=== PATIENT | male | born 1940 | race Caucasian/White ===

== ENCOUNTER 2020-07-23 22:45 | Inpatient (IN) | payer MEDICARE, SELFPAY ==
--- NOTE | 2020-07-23 | XRR_ITS ---
PROCEDURE INFORMATION: Exam: XR Pelvis Exam date and time: 07/23/2020 11:43 PM Age: 79 years old Clinical indication: Injury or trauma; Blunt trauma (contusions or hematomas); Groin; Patient HX: Fall. External rotation of right leg. C/O pain. ; Additional info: Fall, groin pain, rotation TECHNIQUE: Imaging protocol: XR pelvis. Views: 1 or 2 view. COMPARISON: CR XR hip RT 2-3V wo/w pel* [id number] 07/23/2020 11:16 PM FINDINGS: Bones/joints: There is intertrochanteric fracture of the proximal right femur with varus angulation. Bones are moderately osteopenic. Soft tissues: Unremarkable. Vasculature: Aortoiliac stent graft is partly visualized on this examination. XR/XR pelvis 1-2V* [id number] IMPRESSION: Intertrochanteric right femoral fracture.
[2020-07-23 22:52] VITALS: BP 117/79; PULSE 74; RESP 16; O2SAT 97; BMI 23.6
[2020-07-23 22:55] VITALS: PULSE 70; RESP 16; O2SAT 100
--- NOTE | 2020-07-23 23:05 | XRR_ITS ---
PROCEDURE INFORMATION: Exam: XR Right Hip Exam date and time: 07/23/2020 11:07 PM Age: 79 years old Clinical indication: Injury or trauma; Blunt trauma (contusions or hematomas); Right; Groin; Patient HX: Fall. Leg in external rotation. Put in traction via EMS upon arrival. ; Additional info: Fall, groin pain, rotation TECHNIQUE: Imaging protocol: XR Right hip. Views: 1 view hip with pelvis when performed. COMPARISON: No relevant prior studies available. FINDINGS: Bones/joints: There is intertrochanteric fracture of the proximal right femur with varus angulation. Soft tissues: Unremarkable. Vasculature: Atherosclerotic calcifications are present in regional vessels. XR/XR hip RT 2-3V wo/w pel* [id number] IMPRESSION: Intertrochanteric fracture right femur. COMMENTS: Radiograph the pelvis is reported separately.
--- NOTE | 2020-07-23 23:06 | ED_ITS ---
HPI - Fall General: Chief Complaint: Fall Stated Complaint: FALL Time Seen by Provider: 07/23/20 23:02 History of Present Illness: HPI Narrative: Patient arrives via ambulance with right groin pain after sitting in a chair that broke and he fell to the ground a nd his groin hip area is hurt since then. The medics said they found him outside with blanket smoke a cigarette after family drug him from the chair to outside to smoke. Patient said he is unable to bear weight. Does have strong cardiac history denies any other problems denies loss of conscious neck pain or other related problems. Patient did take a pain pill after fall MD complaint: fall Onset (ago): hour(s) (2129) Fall from: chair Fall witnessed: yes, by family Place fall occurred: home Loss of consciousness: None Prolonged down time: no Symptoms prior to fall: none Context: other (Chair broke) Location of injury: pelvis Severity: moderate Severity scale (1-10): 4 Associated symptoms-after fall: Denies abdominal pain, chest pain or headache(s) Review of Systems Const: Denies: fever(s), chills or body aches Eyes: Denies: change in vision or blurry vision ENMT: Denies: throat pain or nasal congestion Card: Denies: chest pain or dyspnea on exertion Resp: Denies: dyspnea, productive cough or non-productive cough GI: Denies: abdominal pain, nausea or vomiting : Denies: difficulty urinating Musc: Reports: joint pain (Right hip groin area) and muscle cramps; Denies: extremity pain Skin/Breast: Denies: rash Neuro: Denies: headache(s) Psych: Denies: anxiety or depression Zach/Lymph: Denies: easy bruising Physical Exam Const: COMMON NORMALS: no acute distress, average body habitus and patient oriented x3 HENMT: COMMON NORMALS: normocephalic HEAD & SCALP: normal to inspection and normocephalic FACE & SINUS: normal facial exam Eye: COMMON NORMALS: conjunctivae normal GENERAL EYE: appearance normal, both eyes and all related structures CONJUNCTIVA: Yes conjunctivae normal Neck/C-Spine: COMMON NORMALS: no JVD Chest: COMMONS NORMALS: normal inspection of the chest Resp: COMMON NORMALS: normal respiratory effort and clear to auscultation bilaterally AUSCULTATION: clear to auscultation bilaterally Cardio: COMMON NORMALS: no JVD, regular rate and regular rhythm RATE: regular rate RHYTHM: regular rhythm GI: COMMON NORMALS: Normal to inspection, nondistended, normoactive bowel sounds present Extremity: COMMON NORMALS: normal to inspection GENERAL: Yes normal exam except as noted RIGHT LOWER EXTREMITY: Yes hip joint (Tender with range of motion foot outwardly rotated pulses good) Neuro: COMMON NORMALS: patient oriented x3 Course Vital Signs: Vital signs: Vital Signs Pulse Rate 70 07/23/20 22:55 Respiratory Rate 16 07/23/20 22:55 Blood Pressure 117/79 07/23/20 22:52 Pulse Oximetry 100 07/23/20 22:55 Coding Level of Care Code ED Rn Field Case Manager for Cam Goldstein
[2020-07-23 23:25] VITALS: BP 146/72; PULSE 69; RESP 18; O2SAT 95
[2020-07-23 23:30] VITALS: BP 128/68; PULSE 67; RESP 16; O2SAT 99
--- NOTE | 2020-07-23 23:38 | ECG_ITS ---
[facility] Test Date: 2020-07-24 Pat Name: Jed Abarca Department: Room: Gender: Male Running Rigger: : 1940 Requested By: Darío Hicks Order Number: [id number] Reading MD: STACY AMBROSIO Measurements Intervals [place] Rate: 70 P: 137 [place]: 136 QRS: 204 QRSD: 168 T: 78 QT: 449 QTc: 487 Interpretive Statements ELECTRONIC ATRIAL PACEMAKER ELECTRONIC VENTRICULAR PACEMAKER ABNORMAL RHYTHM ECG No previous ECG available for comparison Electronically Signed On 07-24-2020 20:17:48 CDT by STACY AMBROSIO [email or web address]
--- NOTE | 2020-07-23 23:39 | XR_ITS ---
WS: [id number] PORTABLE CHEST HISTORY: Status post fall. COMPARISON: None available. Dual lead LEFT subclavian cardiac pacer/defibrillator. Prior median sternotomy. Moderate pulmonary hyperinflation with emphysema. No pneumonia. No pleural effusion or pneumothorax. Cardiac size: Normal. Mediastinum/Aorta: Moderate atherosclerosis aorta. Diffuse osteopenia. Advanced degenerative changes at the glenohumeral joints and AC joints. XR/XR chest 1V portable [id number] IMPRESSION: 1. Advanced emphysema and moderate atherosclerosis thoracic aorta. 2. No pneumonia.
[2020-07-24] VITALS (28 sets, daily range): BP systolic 69–149; BP diastolic 36–87; PULSE 63–76; RESP 15–18; TEMP 36.5–37.1; O2SAT 93–100
[2020-07-24] MEDS: ondansetron 2 mg/ML SDV 2 mL 4 MG IVP (01:09)
[2020-07-24] MEDS: sodium chloride 0.9% 1,000 ML 75 ML IV ×2 (01:10→18:12)
[2020-07-24] MEDS: morphine 4 mg/mL SDV 1 mL IVP ×2 (01:10→03:05)
[2020-07-24 01:24] LABS: Basophils # 0.1 10^3/uL (0.0-0.1); Basophils % 0.8 %; Eosinophils # 0.1 10^3/uL (0.0-0.8); Eosinophils % 0.8 %; Hematocrit 27.2 % (42.0-52.0); Hemoglobin 7.9 g/dL (11.7-16.6); Lymphocytes # 1.5 10^3/uL (0.8-4.8); Lymphocytes % 20.9 %; Mean Corpuscular Hemoglobin 22.8 pg (28.0-34.0); Mean Corpuscular Volume 78.6 fL (80-94); Mean Platelet Volume 10.7 fL (7.4-10.4); Monocytes # 0.5 10^3/uL (0.2-0.9); Neutrophils # 5.01 10^3/uL (1.8-7.7); Neutrophils % 70.1 %; Nucleated Red Blood Cells % 0 %; Platelet Count 155 10^3/cmm (130-400); Red Blood Count 3.46 10^6/uL (4.1-5.3); Red Cell Distribution Width 17.9 % (12.1-15.1); White Blood Count 7.2 10^3/uL (4.0-10.0)
--- NOTE | 2020-07-24 01:24 | PC.NURSE ---
pt refused pain medication
[2020-07-24 01:46] LABS: INR 1.12 (0.8-1.2)
[2020-07-24 01:47] LABS: Alanine Aminotransferase 12 U/L (0-41); Albumin Level 3.6 g/dL (3.5-5.2); Alkaline Phosphatase 62 IU/L (40-130); Anion Gap 13.9 (5-19); Aspartate Amino Transferase 12 U/L (0-40); Blood Urea Nitrogen 16 mg/dL (8-23); Calcium 8.7 mg/dL (8.5-10.5); Carbon Dioxide 23 mmol/L (22-29); Chloride 109 mmol/L (98-107); Globulin 2.3 g/dL (1.3-4.6); Glucose 113 mg/dL (65-115); Osmolality Calculated 296 mOsm/kg (285-295); Potassium 3.9 mmol/L (3.5-5.1); Sodium 142 mmol/L (136-145); Total Bilirubin 0.6 mg/dL (0.15-1.2); Total Protein 5.9 g/dL (6.6-8.7)
[2020-07-24] MEDS: HYDROmorphone 1 mg/mL INJ 1 mL 0.5 MG IVP (01:52)
--- NOTE | 2020-07-24 04:51 | P.HP_ITS ---
Providers/Chief Complaint Admitting Physician: Eugene Scales MD Chief Complaint: FALL History of Present Illness Jed Abarca is a 79 year old male who has history of AICD/pacemaker placement reduced ejection fraction heart failure, presented today after sustaining a fall at home. Patient is stating that he is visiting his sister in [place] originally he lives 300 miles away, today he was having dinner with his sister while sitting on a bar chair, he tried to recline when back of the chair broke and he fell on the ground on his right hip. He started experiencing excruciating pain and was not able to get up on his feet. He was brought to the ER for further evaluation, diagnostics revealed right intertrochanteric hip f racture, Dr. Dee was consulted who requested hospital service to admit the patient. Patient is stating that his last Eliquis dose was around 9 PM, he did not experience any seizure-like activities, chest pain or syncopal event, no signs of UTI, hip pelvis x-ray revealed intertrochanteric right-sided fracture hemoglobin 7.9 Review of Systems Const: Denies: fever(s) Eyes: Denies: change in vision ENMT: Denies: throat pain Card: Denies: chest pain Resp: Denies: dyspnea GI: Denies: abdominal pain : Denies: flank pain Musc: Denies: neck pain Skin/Breast: Denies: rash Neuro: Denies: headache(s) Psych: Denies: anxiety Endo: Denies: polyuria Zach/Lymph: Denies: easy bruising All/Imm: Denies: urticaria Medications/Allergies Home Medications Medication Instructions Recorded Confirmed Last Taken Type Colace PRN 07/24/20 Unknown History Vitamin D3 5,000 mg PO DAILY 07/24/20 07/24/20 07/23/20 08:00 History apixaban [Eliquis] mg BID 07/24/20 07/23/20 08:00 History atorvastatin 07/24/20 1 Day Ago History ~07/23/20 1 tablet calcium 500 mg PO DAILY 07/24/20 07/24/20 1 Day Ago History ~07/23/20 digoxin 125 mcg PO AC 07/24/20 07/24/20 1 Day Ago History ~07/23/20 furosemide 20 mg PO DAILY 07/24/20 07/24/20 07/23/20 08:00 History gabapentin 07/24/20 1 Day Ago History ~07/23/20 0800 hydrocodone-acetaminophen 1 tab PO TID PRN 07/24/20 07/24/20 1 Day Ago History ~07/23/20 0800 magnesium 250 mg PO BID 07/24/20 07/24/20 1 Day Ago History ~07/23/20 metoprolol tartrate 25 mg PO BID 07/24/20 07/24/20 07/23/20 08:00 History omeprazole 07/24/20 07/23/20 08:00 History oxycodone 5 mg PO TID PRN 07/24/20 07/24/20 1 Day Ago History ~07/23/20 1900 potassium chloride 20 meq PO DAILY 07/24/20 07/24/20 07/23/20 08:00 History sildenafil 20 mg PO DAILY PRN 07/24/20 07/24/20 Unknown History tamsulosin 0.4 mg PO DAILY 07/24/20 07/24/20 07/23/20 08:00 History vitamin X03-utvvz acid 1,000 mg PO DAILY 07/24/20 07/24/20 1 Day Ago History ~07/23/20 Allergies Allergy/AdvReac Type Severity Reaction Status Date / Time No Known Allergies Allergy Verified 07/23/20 22:56 PFSH Acute PFSH: Medical History (Updated 07/24/20 @ 06:27 by Eugene Scales MD) Afib Chronic anticoagulation Pacemaker ECG pattern Peripheral vascular disease Stents in lower extremities and aorta Surgical History (Updated 07/24/20 @ 06:27 by Eugene Scales MD) History of ankle surgery Presence of biventricular AICD Previous back surgery S/P placement of cardiac pacemaker Family History (Updated 07/24/20 @ 06:27 by Eugene Scales MD) Father Cancer Mother Cancer Social History (Updated 07/24/20 @ 06:28 by Eugene Scales MD) Smoking and tobacco status: current every day smoker cigarettes [ Other cigarette details: Half pack a day ] Alcohol intake: current Alcohol intake frequency: holidays/special occasions only Substance/Drug Use: never Household members: family Housing: House Vitals/I&O/Wt Last Vital Signs Temp 98.8 F 07/24/20 04:20 Pulse 71 07/24/20 04:20 Resp 15 07/24/20 04:20 BP 90/42 07/24/20 04:21 Pulse Ox 93 07/24/20 04:20 Weight last 48 hrs Weight 70.307 kg Physical Exam Narrative: EXAM NARRATIVE: Very pleasant elderly male who appears younger than stated age Clinically looks dehydrated and emaciated S1, S2 variable, no murmur Abdomen soft nontender hyperactive bowel sound No abdominal tenderness No acute respite distress no adventitious rhonchi or crackles EOMI, PERRLA GCS 15 awake alert oriented x3 no neurological deficit Bilateral breath sounds Lower extremity no edema gangrene ulcer, right lower extremity rotated outwards, no vascular compromise Appropriate mood and affect Data : 07/24/20 01:17 07/24/20 01:17 A&P Assessment and plan (1) Closed right hip fracture: Patient sustained a fall at home after falling from the chair No signs of syncope or cardiac event Patient is stating that he has been losing weight significantly in last 3 months however he underwent 2 major surgeries in April and May for ankle and back He is not very mobile at home, he has reduced action fraction heart failure status post AICD/pacemaker I would request records from [facility] His last Eliquis dose was at 9 PM, would recommend surgical intervention after 24 hours, I am concerned about his poor ejection fraction heart failure and poor functional status however considering the fact he underwent ankle and back surg shaunna last 60 days I would hold off on cardiac work-up until we see further information from [facility] Continue his metoprolol to prevent postoperative worsening of A. fib Hold Eliquis Keep him n.p.o. until evaluated by orthopedics Dr. Dee is consulted Status: Acute Additional A&P Information SCDs for DVT prophylaxis N.p.o. advance diet after orthopedic evaluation Morphine for pain A. fib without RVR AICD/pacemaker no acute event, EKG showing paced rhythm, no syncopal event or chest pain Hold digoxin Attestations Medical Necessity Statement*: Anticipating stay in the hospital because more than 2 midnights because of right intertrochanteric hip fracture will need surgical intervention after 24 hours Time Spent in Patient Care: (>than 50% of time spent in counselling and/or direct pt care on unit) . 40mins Coding Level of Care Code Acute Aviation Safety Equipment Technician for Chg Fwd Diagnoses Closed right hip fracture S72.001A
--- NOTE | 2020-07-24 07:12 | PC.NURSE ---
AM NOTE NOTED RIGHT LEG TO BE EXTERNAL ROTATED - FLOWER PP DOPPLED
[2020-07-24] MEDS: dextrose 5%-sod chloride 0.45% 1,000 ML 30 ML IV (09:17)
[2020-07-24] MEDS: sodium chloride 0.9% 500 ML 999 ML IV (10:01)
--- NOTE | 2020-07-24 10:10 | PC.PT ---
PT orders received, will await ortho repair and additional orders prior to initiating PT
[2020-07-24 10:39] LABS: Hematocrit 26.7 % (42.0-52.0); Hemoglobin 7.6 g/dL (11.7-16.6)
[2020-07-24 10:58] LABS: Digoxin 1.4 ng/mL (0.6-1.2)
[2020-07-24] MEDS: morphine 4 mg/mL SDV 1 mL 2 MG IVP ×2 (13:39→23:26)
--- NOTE | 2020-07-24 13:57 | P.PN_ITS ---
Subjective Subjective: Interval history: History and physical reviewed. Patient reports right hip discomfort, controlled currently. I have spoken with his daughter who had some concerns as he lives out of town. We will plan on repairing the hip here. He normally takes anticoagulation in the form of apixaban. This will be held prior to his surgery. Medications: Reviewed: Yes Vitals/I&O/Wt Last Vital Signs Temp 97.7 F 07/24/20 12:00 Pulse 70 07/24/20 12:00 Resp 18 07/24/20 13:39 BP 100/63 07/24/20 12:50 Pulse Ox 96 07/24/20 12:00 07/23/20 07/24/20 07/24/20 22:59 06:59 14:59 Intake Total 0 / 0 480 / 480 Balance 0 / 0 480 / 480 Weight last 48 hrs Weight 70.307 kg Physical Exam Narrative: EXAM NARRATIVE: General exam no apparent distress Cardiovascular regular rate and rhythm, with distant heart sounds Lungs diminished breath sounds but clear Abdomen is soft positive bowel sounds was deferred Extremities no cyanosis clubbing or edema, cap refill brisk. Right leg externally rotated and shortened. Neuro: No obvious focal deficits Urinary Catheter Management^: [place]: Cath Placed During This Visit: yes Urinary Catheter Date of Insertion: 07/24/20 Urinary Catheter Time of Insertion: 10:18 Data : 07/24/20 10:04 07/24/20 01:17 A&P Assessment and plan (1) Closed right hip fracture: Status: Acute (2) Anemia: Status: Acute (3) Afib: Status: Acute Additional A&P Information History of CHF, with history of biventricular AICD Peripheral vascular disease with history of subclavian stenosis for which he will be getting surgical evaluation soon. Note that his blood pressures vary greatly side to side. GERD BPH Full code SCDs for DVT prophylaxis. Anticoagulation contraindicated secondary to severe anemia. Attestations Medical Necessity Statement*: Needs continued hospitalization for evaluation and treatment of hip fracture as well as anemia. Coding Level of Care Code Acute Unit Secretary for Chg Fwd Diagnoses Closed right hip fracture S72.001A Anemia D64.9 Afib I48.91
--- NOTE | 2020-07-24 14:18 | PM.CONSULT ---
Providers/Reason For Consult Consulting Physican/Specialty*: Carlos Dee MD; orthopedic Reason for Consult*: Right intratrochanteric hip fracture Attending Physician: Venu Sosa MD History of Present Illness History of Present Illness Jed Abarca is a 79 year old male who was visiting his daughter here from [place]. He apparently was sitting on a barstool. He leaned back with the back of the chair breaking. He fell to the ground landing on his right hip with immediate pain and inability to bear weight. He was brought to our emergency room where radiographs revealed a right intratrochanteric hip fracture. I have been consulted for surgical management of a fracture. The patient has a medical history consistent with atrial fibrillation. He has a history of coronary artery disease and was scheduled for stent placement this next Thursday in [place]. Meds/Allergies Home Medications and Allergies Home Medications Medication Instructions Recorded Confirmed Last Taken Type Colace PRN 07/24/20 Unknown History Vitamin D3 5,000 mg PO DAILY 07/24/20 07/24/20 07/23/20 08:00 History apixaban [Eliquis] mg BID 07/24/20 07/23/20 08:00 History atorvastatin 07/24/20 1 Day Ago History ~07/23/20 1 tablet calcium 500 mg PO DAILY 07/24/20 07/24/20 1 Day Ago History ~07/23/20 digoxin 125 mcg PO AC 07/24/20 07/24/20 1 Day Ago History ~07/23/20 furosemide 20 mg PO DAILY 07/24/20 07/24/20 07/23/20 08:00 History gabapentin 07/24/20 1 Day Ago History ~07/23/20 0800 hydrocodone-acetaminophen 1 tab PO TID PRN 07/24/20 07/24/20 1 Day Ago History ~07/23/20 0800 magnesium 250 mg PO BID 07/24/20 07/24/20 1 Day Ago History ~07/23/20 metoprolol tartrate 25 mg PO BID 07/24/20 07/24/20 07/23/20 08:00 History omeprazole 07/24/20 07/23/20 08:00 History oxycodone 5 mg PO TID PRN 07/24/20 07/24/20 1 Day Ago History ~07/23/20 1900 potassium chloride 20 meq PO DAILY 07/24/20 07/24/20 07/23/20 08:00 History sildenafil 20 mg PO DAILY PRN 07/24/20 07/24/20 Unknown History tamsulosin 0.4 mg PO DAILY 07/24/20 07/24/20 07/23/20 08:00 History vitamin U13-huiix acid 1,000 mg PO DAILY 07/24/20 07/24/20 1 Day Ago History ~07/23/20 Allergies Allergy/AdvReac Type Severity Reaction Status Date / Time No Known Allergies Allergy Verified 07/23/20 22:56 Current Medications Current Medications Generic Name Dose Route Start Last Admin Trade Name Freq PRN Reason Stop Dose Admin Sodium Chloride 1,000 mls @ 75 mls/hr 07/23/20 23:45 07/24/20 01:10 Sodium Chloride 0.9% IV 75 mls/hr .[id number] CHAVEZ Administration Dextrose/Sodium Chloride 1,000 mls @ 30 mls/hr 07/24/20 06:30 07/24/20 09:17 Dextrose 5%-Sod Chloride 0.45% IV 30 mls/hr .Q24H CHAVEZ Administration Morphine Sulfate 2 mg 07/24/20 06:17 07/24/20 13:39 Morphine 4 Mg/Ml Sdv 1 Ml IVP 2 mg Q4H PRN Administration SEVERE PAIN Senna/Docusate Sodium 1 tab 07/24/20 09:00 07/24/20 07:28 Sennosides-Docusate Tablet PO Not Given DAILY CHAVEZ PFSH Acute PFSH: Medical History (Updated 07/24/20 @ 13:59 by Venu Sosa MD) Afib Chronic anticoagulation Pacemaker ECG pattern Peripheral vascular disease Stents in lower extremities and aorta Surgical History (Updated 07/24/20 @ 06:27 by Eugene Scales MD) History of ankle surgery Presence of biventricular AICD Previous back surgery S/P placement of cardiac pacemaker Family History (Updated 07/24/20 @ 06:27 by Eugene Scales MD) Father Cancer Mother Cancer Social History (Updated 07/24/20 @ 06:28 by Eugene Scales MD) Smoking and tobacco status: current every day smoker cigarettes [ Other cigarette details: Half pack a day ] Alcohol intake: current Alcohol intake frequency: holidays/special occasions only Substance/Drug Use: never Household members: family Housing: House Vitals/I&O/Wt Last Vital Signs Temp 97.7 F 07/24/20 12:00 Pulse 70 07/24/20 12:00 Resp 18 07/24/20 13:39 BP 100/63 07/24/20 12:50 Pulse Ox 96 07/24/20 12:00 07/23/20 07/24/20 07/24/20 22:59 06:59 14:59 Intake Total 0 / 0 480 / 480 Balance 0 / 0 480 / 480 Weight last 48 hrs Weight 155 lb Physical Exam Narrative: EXAM NARRATIVE: On examination Mr. Abarca is a elderly talkative male in no apparent distress. He answers questions appropriately and seems oriented to person place and time. He has exquisite pain with motion of the right hip and tenderness to palpation over the right hip. Palpable right dorsalis pedis pulse. [place] extends right toes and ankle without any motor deficits Sensation is intact to light touch. Urinary Catheter Management^: [place]: Cath Placed During This Visit: yes Urinary Catheter Date of Insertion: 07/24/20 Urinary Catheter Time of Insertion: 10:18 Data Imaging^: Xray Ortho: My impression: Radiographs of the right hip are reviewed. The patient has a normal right intertrochanteric hip fracture. Bone quality appears reasonable A&P Additional A&P Information Right intratrochanteric hip fracture in a previously ambulatory 79-year-old male. I discussed options with the patient.. I told the patient we could treat this nonoperatively but certainly they would be at risk for medical problems without surgery. Theywould have problems with pain that would require narcotics for pain control. They would require a long period of bedrest dentist attendant risk for pneumonia and skin breakdown. I discussed surgical intervention with the patient. I told them with open reduction internal fixation they should be able to be mobilized and resume ambulatory status. We can eliminate the problems associated with prolonged bed rest and would have better control of pain. Certainly there would be inherent risk with surgery. These would would include the risk of cardiac complications, stroke, infection, and even . I discussed risk of any orthopedic implant including nonunion, malunion, a component failure. I discussed the possible need for component removal. I discussed risk of deep venous thromboses and pulmonary emboli that are present with any treatment and the importance of DVT prophylaxis. The patient expressed good understanding of alternative treatments, seem to comprehend, and agrees to surgical intervention. He has a significant cardiac history including chronic anticoagulation and artery artery disease. Will need to stop his Eliquis for 48 hours prior to surgery. Internal medicine is seeing the patient to be sure he is stable for surgery. The family earlier this morning expressed some concerns that the may want to transfer him to [place]. I explained this probably would not be possible with a broken hip without undue pain and my suggestion would be stabilization of the hip here and continuation of his care in [place] if they wish. Coding Level of Care Code Acute Fitting Room Maintenance Mechanic for Cam Goldstein
[2020-07-24 14:54] LABS: Folate Level 10.3 ng/mL (4.5-32.2)
[2020-07-24 15:26] LABS: Ferritin 21 ng/mL (30-400); Iron 22 ug/dL (59-158); Percent Saturation 5.9 % (20-50); Total Iron Binding Capacity 369 mcg/dl; Unsaturated Iron Binding 347 ug/dL (112-347)
[2020-07-24 15:31] LABS: Vitamin B12 1502 pg/mL (232-1245)
--- NOTE | 2020-07-24 15:32 | PC.NURSE ---
PRBC 1ST UNIT OF PRBC UP - UNIT #[id number] - STARTED AT 50ML/HR - GAYLA WELL - DAUGHTER AT SIDE
[2020-07-24] MEDS: pantoprazole DR 40 mg Tablet PO (17:22)
--- NOTE | 2020-07-24 18:17 | PC.NURSE ---
DR HUGO ARIAS AT PTS SIDE WITH BOTH PT AND DAUGHTER EXPLAINING PLAN OF CARE FOR TOMORROW
[2020-07-24] MEDS: oxyCODONE 5 mg IR Tab/Cap PO (20:22)
[2020-07-24] MEDS: atorvastatin 40 mg Tablet PO (20:22)
[2020-07-24] MEDS: metoprolol tartrate 25 mg Tablet 12.5 MG PO (20:22)
[2020-07-25] VITALS (28 sets, daily range): BP systolic 100–166; BP diastolic 58–102; PULSE 69–87; RESP 15–24; TEMP 36.5–37.4; O2SAT 90–98
--- NOTE | 2020-07-25 | SCC_ITS ---
Procedure Done: Open reduction and internal fixation right hip with intramedullary device 88.5 seconds of fluoroscopic guidance, for a cumulative dose of 13.00 mGy, was provided to Dr. Dee by the radiology department. C-arm images of the RIGHT hip were saved for the patient's permanent record. [facility]
[2020-07-25] MEDS: oxyCODONE 5 mg IR Tab/Cap PO (02:31)
[2020-07-25 02:43] LABS: Basophils % 0.5 %; Eosinophils # 0.1 10^3/uL (0.0-0.8); Eosinophils % 1.2 %; Hematocrit 26.1 % (42.0-52.0); Hemoglobin 7.7 g/dL (11.7-16.6); Lymphocytes # 1.3 10^3/uL (0.8-4.8); Lymphocytes % 17.6 %; Mean Corpuscular HGB Conc 29.5 g/dL (30.0-36.0); Mean Corpuscular Hemoglobin 23.8 pg (28.0-34.0); Mean Corpuscular Volume 80.8 fL (80-94); Mean Platelet Volume 10.5 fL (7.4-10.4); Monocytes # 0.7 10^3/uL (0.2-0.9); Monocytes % 9.7 %; Neutrophils # 5.21 10^3/uL (1.8-7.7); Neutrophils % 70.6 %; Nucleated Red Blood Cells % 0 %; Platelet Count 127 10^3/cmm (130-400); Red Blood Count 3.23 10^6/uL (4.1-5.3); Red Cell Distribution Width 18.4 % (12.1-15.1); White Blood Count 7.4 10^3/uL (4.0-10.0)
[2020-07-25 02:58] LABS: Magnesium 1.8 mg/dL (1.7-2.3)
[2020-07-25 03:02] LABS: Blood Urea Nitrogen 15 mg/dL (8-23); Calcium 8.2 mg/dL (8.5-10.5); Carbon Dioxide 24 mmol/L (22-29); Chloride 109 mmol/L (98-107); Glucose 101 mg/dL (65-115); Osmolality Calculated 293 mOsm/kg (285-295); Sodium 141 mmol/L (136-145)
[2020-07-25 03:16] LABS: Digoxin 1.1 ng/mL (0.6-1.2)
[2020-07-25] MEDS: dextrose 5%-sod chloride 0.45% 1,000 ML 30 ML IV (05:53)
[2020-07-25] MEDS: digoxin 125 mcg Tablet PO (08:43)
[2020-07-25] MEDS: metoprolol tartrate 25 mg Tablet PO ×2 (08:44→20:57)
[2020-07-25] MEDS: diphenhydrAMINE 25 mg Capsule PO (09:28)
[2020-07-25] MEDS: acetaminophen 500 mg Tablet PO (09:28)
[2020-07-25] MEDS: sodium chloride 0.9% (100 ml) 100 ML 10 ML (09:29)
--- NOTE | 2020-07-25 09:48 | PC.NURSE ---
PRBC PRBC TRANSFUSION STARTED AT 50 - DR VARGAS NOTIFIED PER JOSE HOFFMAN OF TEMP OF 99.1 - ORDERS REC'D TO PRE MEDICATE - DONE PER CHARGE NURSE - VSS - DTR [facility] #[id number]
--- NOTE | 2020-07-25 09:54 | PC.CHAP ---
Pastoral Care Encounter/Spiritual Assessment Type of Contact [] Declined ski base trimmer visit [] Patient/Family/Request visit [] Outpatient visit [] Follow-up visit [] Physician referral [] Code/Alert [x] Routine visit [] Staff referral [] Actively dying [] Patient sleeping [] Family support [] [] Out of room [] Palliative care [] [] Receiving care in room [] Pre-surgical visit [] Trauma [] Long length of stay [] ICU visit [] Other: Relational/Emotional Strength [x] Patient feels connected with others/family/visitors/staff [] Distress [] Loneliness/isolation [] Abandonment Spirituality of Patient [x] Person of Taylor [x] Attends Hindu of their [place] [x] Believes in Prayer [x] Reads Bible or Mormonism materials [] There are Spiritual issues to be addressed Licensed Nurse Practitioner Interventions [x] Prayer [x] Active listening [x] Non-anxious presence [x] Spiritual/emotional support [] Crisis/trauma care [] Spiritual counseling [] Bereavement support [] Provided bereavement packet [] Provided Bible/devotional materials [] Provided toy/stuffed animal, coloring book to patient or family member [] Provided Communion [] Anointing/[place] [] Salvation [x] Completed spiritual assessment [] Other: Impact on Illness or Injury [] Angry [] Fearful [] Anxious [] Often cries [] Exhaustion [] Unable to work [] Unable to attend methodist [] Unable to walk/stand [] Unable to read [] Unable to drive [] Unable to eat/drink [] Unable to sleep [] Unable to be with family [] Patient intubated [] Other: Summary Pt's daughter was with him. Pt was visiting family in the area when he had a fall and broke his hip. Surgery is scheduled today and then he plans to transfer to a rehab center close to his home. Daughter is currently staying in a motel until after surgery and the move to rehab. They expressed they are persons of taylor and usually attend services but due to Covid have not been in some time. Did request the Lord's prayer. Time spent with patient 10m
[2020-07-25] MEDS: morphine 4 mg/mL SDV 1 mL 2 MG IVP (11:04)
--- NOTE | 2020-07-25 11:39 | P.ANESASSM_ITS ---
Pre-Anesthetic Assessment Pre-Anesthetic Assessment: Height/Weight: Height 1.73 m Weight 70.307 kg Temp Pulse Resp BP Pulse Ox 99.2 F 73 16 165/82 96 07/25/20 10:17 07/25/20 10:17 07/25/20 10:17 07/25/20 10:17 07/25/20 10:17 Preop Diagnosis: hip fracture Proposed Procedure: Operation Date: 07/25/20 12:00 Proposed Procedures p Trochanteric Femoral Nail(Right) - Carlos Dee MD Familial anesthetic complications: Coded in 2016 during ankle surgery, had CABG afterwards Was Beta Tony taken within 24 hours: Yes Was Clonidine taken within 24 hours: N/A Last intake: Intake Last Liquid Date 07/24/20 Last Liquid Time 23:50 Last Solid Date 07/24/20 Last Solid Time 21:00 Social: Social History: Tobacco and No alcohol Exam: Pre-Anes Outpt Exam: alert, oriented x 3, clear to auscultation bi laterally and regular rate & rhythm Airway: Cervical ROM: WNL MP: 3 Dentition: False Pulmonary: Pulmonary: COPD (On O2) CV/HEM: CV/HEM: Afib and Arrythmia (nonsustained VTACH) Comments: CABG, Pacemaker/AICD with complete heart block diagnosed in 2016 , L subclavian stenosis (systolics 60s in that arm) Echo March 2020- EF of 45%, but myocardia perfusion imaging showed EF 24% Echo 06/07/2019 - EF 50%, mild LV dilation and RV dilation, mod diastolic dysfunction, mild AVR, mild Regruge, MIld TVR 10/27/19 MPI for VTACH --> EF 24%, severe global hypokinesis, mild ischemia lateral basal to near apical infarct AAA endograft GI: GI: GERD Neuropsych: Neuropsych: CVA (June 2019) Comments: B/L carotid stenosis Anesthetic Plan: ASA status: 4 Anesthesia: General Risk of > 500 ml blood loss (7ml/kg in children): No Other Pertinent Information: Tolerated L2,3,4,5 laminectomies (4 hr procedure in mar 2020) and R carotidendarterectomy in 2008 Meds/Allergies Current Medications: Current Medications Generic Name Dose Route Start Last Admin Trade Name Freq PRN Reason Stop Dose Admin Atorvastatin Calci um 40 mg 07/24/20 21:00 07/24/20 20:22 Atorvastatin 40 Mg Tablet PO 40 mg BEDTIME CHAVEZ Administration Digoxin 125 mcg 07/25/20 09:00 07/25/20 08:43 Digoxin 125 Mcg Tablet PO 125 mcg EVERY OTHER DAY S CH Administration Dextrose/Sodium Ch loride 1,000 mls @ 30 ml s/hr 07/24/20 06:30 07/25/20 05:53 Dextrose 5%-Sod Chloride 0.45% IV 30 mls/hr .Q24H CHAVEZ Administration Metoprolol Tartrat e 25 mg 07/25/20 09:00 07/25/20 08:44 Metoprolol Tartr ate 25 Mg Tablet PO 25 mg BID@0900,2100 CHAVEZ Administration Morphine Sulfate 2 mg 07/24/20 06:17 07/25/20 11:04 Morphine 4 Mg/Ml Sdv 1 Ml IVP 2 mg Q4H PRN Administration SEVERE PAIN Oxycodone HCl 5 mg 07/24/20 14:02 07/25/20 02:31 Oxycodone 5 Mg I r Tab/Cap PO 5 mg Q6H PRN Administration MODERATE PAIN Pantoprazole Sodiu m 40 mg 07/24/20 18:00 07/25/20 08:[address] 40 Mg Tablet PO Not Given BID CHAVEZ Senna/Docusate Sod ium 1 tab 07/24/20 09:00 07/25/20 08:32 Sennosides-Docus ate Tablet PO Not Given DAILY CHAVEZ PFSH Anesthesia PFSH: Medical History (Updated 07/24/20 @ 13:59 by Venu Sosa MD) Afib Chronic anticoagulation Pacemaker ECG pattern Peripheral vascular disease Stents in lower extremities and aorta Surgical History (Updated 07/24/20 @ 06:27 by Eugene Scales MD) History of ankle surgery Presence of biventricular AICD Previous back surgery S/P placement of cardiac pacemaker Family History (Updated 07/24/20 @ 06:27 by Eugene Scales MD) Father Cancer Mother Cancer Social History (Updated 07/24/20 @ 06:28 by Eugene Scales MD) Smoking and tobacco status: current every day smoker cigarettes [ Other cigarette details: Half pack a day ] Alcohol intake: current Alcohol intake frequency: holidays/special occasions only Substance/Drug Use: never Household members: family Housing: House Data Anesthesia CBC & Chem 7: 07/25/20 02:17 07/25/20 02:17 Other Labs: Laboratory Results - last 48 hr 07/24/20 07/24/20 07/24/20 01:17 01:17 01:17 WBC 7.2 RBC 3.46 L Hgb 7.9 L Hct 27.2 L MCV 78.6 L MCH 22.8 L MCHC 29.0 L RDW 17.9 H Plt Count 155 MPV 10.7 H Neut % (Auto) 70.1 Lymph % (Auto) 20.9 Den[place] % (Auto) 7.0 Eos % (Auto) 0.8 Baso % (Auto) 0.8 Neut # (Auto) 5.01 Lymph # (Auto) 1.5 Den[place] # (Auto) 0.5 Eos # (Auto) 0.1 Baso # (Auto) 0.1 Nucleated RBC % (auto) 0 Nucleated RBCs # 0.0 PT 14.80 INR 1.12 Sodium 142 Potassium 3.9 Chloride 109 H Carbon Dioxide 23 Anion Gap 13.9 BUN 16 Creatinine 1.0 GFR Calculation Not Reportable Glucose 113 Calculated Osmolality 296 H Calcium 8.7 Magnesium Iron TIBC % Saturation Unsat Iron Binding Ferritin Total Bilirubin 0.6 AST 12 ALT 12 Alkaline Phosphatase 62 Total Protein 5.9 L Albumin 3.6 Globulin 2.3 Vitamin B12 Folate Digoxin Blood Type Rho(D) Type Antibody Screen Crossmatch 07/24/20 07/24/20 07/24/20 10:04 10:04 10:04 WBC RBC Hgb 7.6 L Hct 26.7 L MCV MCH MCHC RDW Plt Count MPV Neut % (Auto) Lymph % (Auto) Den[place] % (Auto) Eos % (Auto) Baso % (Auto) Neut # (Auto) Lymph # (Auto) Den[place] # (Auto) Eos # (Auto) Baso # (Auto) Nucleated RBC % (auto) Nucleated RBCs # PT INR Sodium Potassium Chloride Carbon Dioxide Anion Gap BUN Creatinine GFR Calculation Glucose Calculated Osmolality Calcium Magnesium Iron TIBC % Saturation Unsat Iron Binding Ferritin Total Bilirubin AST ALT Alkaline Phosphatase Total Protein Albumin Globulin Vitamin B12 Folate Digoxin 1.4 H Blood Type O Positive Rho(D) Type Positive / 4+ Antibody Screen Negative Crossmatch See Detail 07/24/20 07/24/20 07/25/20 10:04 10:04 02:17 WBC 7.4 RBC 3.23 L Hgb 7.7 L Hct 26.1 L MCV 80.8 MCH 23.8 L MCHC 29.5 L RDW 18.4 H Plt Count 127 L MPV 10.5 H Neut % (Auto) 70.6 Lymph % (Auto) 17.6 Den[place] % (Auto) 9.7 Eos % (Auto) 1.2 Baso % (Auto) 0.5 Neut # (Auto) 5.21 Lymph # (Auto) 1.3 Denali # (Auto) 0.7 Eos # (Auto) 0.1 Baso # (Auto) 0.0 Nucleated RBC % (auto) 0 Nucleated RBCs # 0.0 PT INR Sodium Potassium Chloride Carbon Dioxide Anion Gap BUN Creatinine GFR Calculation Glucose Calculated Osmolality Calcium Magnesium Iron 22 L TIBC 369 % Saturation 5.9 L Unsat Iron Binding 347 Ferritin 21 L Total Bilirubin AST ALT Alkaline Phosphatase Total Protein Albumin Globulin Vitamin B12 1502 H Folate 10.3 Digoxin Blood Type Rho(D) Type Antibody Screen Crossmatch 07/25/20 07/25/20 07/25/20 02:17 02:17 02:17 WBC RBC Hgb Hct MCV MCH MCHC RDW Plt Count MPV Neut % (Auto) Lymph % (Auto) Denali % (Auto) Eos % (Auto) Baso % (Auto) Neut # (Auto) Lymph # (Auto) Den[place] # (Auto) Eos # (Auto) Baso # (Auto) Nucleated RBC % (auto) Nucleated RBCs # PT INR Sodium 141 Potassium 4.0 Chloride 109 H Carbon Dioxide 24 Anion Gap 12.0 BUN 15 Creatinine 0.9 GFR Calculation Not Reportable Glucose 101 Calculated Osmolality 293 Calcium 8.2 L Magnesium 1.8 Iron TIBC % Saturation Unsat Iron Binding Ferritin Total Bilirubin AST ALT Alkaline Phosphatase Total Protein Albumin Globulin Vitamin B12 Folate Digoxin 1.1 Blood Type Rho(D) Type Antibody Screen Crossmatch Cardiac Studies: No Data to Display
--- NOTE | 2020-07-25 11:39 | PC.NURSE ---
1130 TAKEN OFF FLOOR VIA OR CREW WITH DAUGHTER AT SIDE - BLOOD TRANSFUSING AT PRESENT TIME WITHOUT DIFFICULTY
--- NOTE | 2020-07-25 12:00 | W.PM.OPSUD ---
Surgery/Procedure H&P Update DATE OF PROCEDURE: July 25, 2020 DATE H&P PERFORMED: 07/24/20 PREOP DIAGNOSIS: hip fracture PLANNED PROCEDURE: Operation Date: 07/25/20 12:00 Proposed Procedures p Trochanteric Femoral Nail(Right) - Carlos Dee MD
--- NOTE | 2020-07-25 12:47 | PM.PN ---
Subjective Subjective: Interval history: I saw Jed earlier today. He had no particular complaints. Was waiting to have his hip surgery. Medications: Reviewed: Yes Vitals/I&O/Wt Last Vital Signs Temp 97.7 F 07/25/20 12:02 Pulse 72 07/25/20 12:02 Resp 18 07/25/20 12:02 BP 164/86 07/25/20 12:02 Pulse Ox 96 07/25/20 12:02 07/24/20 07/25/20 07/25/20 22:59 06:59 14:59 Intake Total 1500 / 2220 1518 / 3738 350 / 350 Output Total 300 / 300 700 / 1000 Balance 1200 / 1920 818 / 2738 350 / 350 Weight last 48 hrs Weight 70.307 kg Physical Exam Narrative: EXAM NARRATIVE: General exam no apparent distress Cardiovascular regular rate and rhythm, with distant heart sounds Lungs diminished breath sounds but clear Abdomen is soft positive bowel sounds was deferred Extremities no cyanosis clubbing or edema, cap refill brisk. Right leg externally rotated and shortened. Urinary Catheter Management^: Radford: Cath Placed During This Visit: yes Reason for Continuing Indwelling Catheter: Acute Urinary Retention or Obstruction Urinary Catheter Date of Insertion: 07/24/20 Urinary Catheter Time of Insertion: 10:18 Data : 07/25/20 02:17 07/25/20 02:17 A&P Assessment and plan (1) Closed right hip fracture: To surgery today Will need rehabilitation and discharge planning is working on this Status: Acute (2) Anemia: This is been found to be chronic with a hemoglobin around 8.2 10 days ago. As his hemoglobin is less than 8, with known cardiac disease we will transfuse 1 unit packed red blood cells prior to surgery Close follow-up of hemoglobin tomorrow. Status: Acute (3) Afib: Rate is controlled currently Digoxin level is now normal Resume metoprolol. Change digoxin to every other day. Status: Acute Additional A&P Information History of CHF, with history of biventricular AICD. Currently compensated Peripheral vascular disease with history of subclavian stenosis for which he will be getting surgical evaluation soon. Note that his blood pressures vary greatly side to side. GERD BPH Full code SCDs for DVT prophylaxis. Anticoagulation contraindicated secondary to severe anemia. Attestations Medical Necessity Statement*: Needs continued hospitalization for definitive treatment of his hip fracture Coding Level of Care Code Acute High School Band Director for Chg Fwd Diagnoses Closed right hip fracture S72.001A Anemia D64.9 Afib I48.91
--- NOTE | 2020-07-25 13:16 | PM.OP ---
Operative Report Date of procedure: July 25, 2020 Pre-op Diagnosis: Right intratrochanteric hip fracture Post-op diagnosis: same Post-op Findings: Same Procedure Done: Open reduction and internal fixation right hip with intramedullary device Implants: [place] Gamma nail 11 x 380 mm, 105 mm lag screw Pathology: none sent Surgeon: Carlos Dee Anesthesia: General Estimated blood loss (mL): 50 Complications: 0 Findings: The patient had a minimally displaced right intertrochanteric hip fracture. Condition: stable Disposition: PACU Procedure: The patient was taken to the operating room. They were given 2 g of Ancef. They were positioned on the fracture table with the right lower extremity in gentle traction. A timeout was performed. A 2 cm long incision was made proximal to the greater trochanter scalpel blade. Dissection was carried down to tip the greater trochanter. A guidepin was passed manually from the tip of the trochanter down the shaft. The proximal reamer was utilized to open up the proximal canal. An 11 mm by 380 [place] gamma nail was passed down the canal without difficulty. Under visualization of fluoroscopy a guidepin was driven up into the head and neck at 125? angle. It was measured at 105 mm in length and a lag screw similar length was then placed and locked into place with the proximal locking screw. As rotational control was gained of the distal fragment with the proximal leg screw and a good diaphyseal fit was noted no distal locking screw was put intraoperative imaging was obtained verifying satisfactory position of the hardware and reduction of the fracture. Deep tissues were closed with 0 Vicryl as were subcutaneous tissues. The skin was closed with skin trevin. Sterile dressings were applied. The patient was extubated and taken to recovery room in stable condition.
[2020-07-25] MEDS: fentaNYL 50 mcg/mL INJ 2mL 100 MCG IVP (13:31)
--- NOTE | 2020-07-25 13:35 | XR_ITS ---
WS: [id number] Right hip, C-arm fluoroscopy views in the OR, 07/25/2020 Clinical Data: OR PICTURES Comparison: Pelvis, 07/24/2020 Findings: There is a hip nail inserted into the right femoral neck. There is a long intramedullary radha in the r ight femur. The intertrochanteric fracture of the right hip is reduced. XR/XR hip RT 2-3V wo/w pel* [id number] Impression: Internal fixation of right hip intertrochanteric fracture.
--- NOTE | 2020-07-25 14:32 | PC.NURSE ---
OR NOTE TO ROOM VIA TERA RN - [address] AT 3LNC - AP RRR - LUNGS NOTED TO HAVE SCATTERED WHEEZES THROUGHOUT - ABD SOFT WITH NO DISTENTIONS - BS HYPOACTIVE - IV PATENT VIA PUMP TO RIGHT WRIST - AMOS INTACT - RIGHT HIP NOTED TO HAVE OPTIFOAM C/D/I WITH NO REDNESS OR DRAINAGE NOTED - RIGHT FOOT WITH FOOT PUMP - LEFT LEG WITH SCD - PT CONFUSED TO PLACE, TIME AND SITUATION - DAUGHTER AT SIDE
[2020-07-25] MEDS: HYDROcodone-acetaminophen 5-325 mg Tablet 1 TAB PO ×2 (14:39→20:59)
--- NOTE | 2020-07-25 14:40 | PC.NURSE ---
NO ARM BAND PT REQUESTING PAIN MEDICATION FLACC 11/03 - ARM BAND NO LONGER ON PT POST OP - VERIFIED NAME AND DATE OF WITH DAUGHTER AT BEDSIDE
--- NOTE | 2020-07-25 16:42 | PC.RESP ---
Smoking Cessation information sent to patient.
[2020-07-25] MEDS: sodium chloride 0.9% 1,000 ML 100 ML IV (16:48)
[2020-07-25] MEDS: chlorhexidine gluconate 0.12% Btl 473 mL 30 ML MUCOUS MEM ×2 (16:48→21:01)
[2020-07-25] MEDS: sennosides-docusate Tablet 2 TAB PO (16:49)
[2020-07-25] MEDS: pantoprazole DR 40 mg Tablet PO (16:49)
--- NOTE | 2020-07-25 17:50 | PC.NURSE ---
END OF SHIFT NOTE PT REMAINS SLIGHTLY CONFUSED FROM POST ANESTHESIA - [address] AT 3l NC - DAUGHTER AT SIDE - IV PATENT TO RIGHT SIDE - NEW ARM BAND PLACED ON PER THIS NURSE - LAB NOTIFIED OF NEED FOR NEW TYPNEX BAND - PT RETURNED FROM OR WITHOUT NAME BAND AND TYPENEX BAND - RIGHT HIP DRESSING C/D/I WITH ICE IN PLACE - AMOS PATENT WITH YELLOW URINE - RIGHT FOOT PUMP IN PLACE WITH LEFT SCD IN PLACE - VSS - PAIN WELL CONTROLLED WITH PO PAIN MEDS
--- NOTE | 2020-07-25 18:07 | ANE.PACU2 ---
Inpatient post-anesthesia follow up: Airway intact: Yes Vital signs: Temperature 98.7 F Pulse Rate [Monito r] 74 Pulse Rate 74 Respiratory Rate 18 Blood Pressure [Le ft Arm] 117/79 Blood Pressure 124/68 Pulse Oximetry 94 Oxygen Delivery Me thod Nasal Cannula Oxygen Flow Rate 3 Fraction of Inspir ed Oxygen Hydration adequate: Yes Nausea and vomiting: No Pain level: 2 Mental status: Baseline
[2020-07-25] MEDS: nicotine 14 mg Patch 1 PATCH TRANSDERMA (20:57)
[2020-07-25] MEDS: atorvastatin 40 mg Tablet PO (20:58)
[2020-07-26] VITALS (8 sets, daily range): BP systolic 88–127; BP diastolic 55–72; PULSE 72–77; RESP 16–18; TEMP 36.7–37.3; O2SAT 91–99
[2020-07-26] MEDS: sodium chloride 0.9% 1,000 ML 100 ML IV (02:07)
[2020-07-26 02:57] LABS: Basophils % 0.2 %; Hematocrit 25.1 % (42.0-52.0); Hemoglobin 7.5 g/dL (11.7-16.6); Lymphocytes # 0.8 10^3/uL (0.8-4.8); Lymphocytes % 9.7 %; Mean Corpuscular HGB Conc 29.9 g/dL (30.0-36.0); Mean Corpuscular Hemoglobin 24.4 pg (28.0-34.0); Mean Corpuscular Volume 81.5 fL (80-94); Mean Platelet Volume 10.6 fL (7.4-10.4); Monocytes # 0.8 10^3/uL (0.2-0.9); Monocytes % 9.2 %; Neutrophils # 6.65 10^3/uL (1.8-7.7); Neutrophils % 80.4 %; Nucleated Red Blood Cells % 0 %; Platelet Count 102 10^3/cmm (130-400); Red Blood Count 3.08 10^6/uL (4.1-5.3); Red Cell Distribution Width 18.3 % (12.1-15.1); White Blood Count 8.3 10^3/uL (4.0-10.0)
[2020-07-26 03:18] LABS: Blood Urea Nitrogen 17 mg/dL (8-23); Calcium 7.9 mg/dL (8.5-10.5); Carbon Dioxide 23 mmol/L (22-29); Chloride 109 mmol/L (98-107); Glucose 138 mg/dL (65-115); Osmolality Calculated 290 mOsm/kg (285-295); Sodium 138 mmol/L (136-145)
[2020-07-26] MEDS: dextrose 5%-sod chloride 0.45% 1,000 ML 30 ML IV (06:31)
[2020-07-26] MEDS: iron sucrose 200 MG in sodium chloride 0.9% (100 ml) 100 ML 220 MG IV (08:36)
[2020-07-26] MEDS: HYDROcodone-acetaminophen 5-325 mg Tablet 1 TAB PO ×3 (08:37→21:49)
[2020-07-26] MEDS: metoprolol tartrate 25 mg Tablet PO ×2 (08:38→21:48)
[2020-07-26] MEDS: nicotine 14 mg Patch 1 PATCH TRANSDERMA (08:38)
[2020-07-26] MEDS: sennosides-docusate Tablet 2 TAB PO ×2 (08:39→17:12)
[2020-07-26] MEDS: pantoprazole DR 40 mg Tablet PO ×2 (08:40→17:12)
[2020-07-26] MEDS: chlorhexidine gluconate 0.12% Btl 473 mL 30 ML MUCOUS MEM ×4 (08:41→21:50)
[2020-07-26] MEDS: FUROsemide 10 mg/mL SDV 2mL 20 MG IVP (10:05)
[2020-07-26] MEDS: gabapentin 100 mg Capsule PO (10:05)
--- NOTE | 2020-07-26 10:10 | P.PN_ITS ---
Subjective Subjective: Interval history: Jed reports he is doing okay this morning. He is having some hip pain. No significant shortness of breath. Medications: Reviewed: Yes Vitals/I&O/Wt Last Vital Signs Temp 98.3 F 07/26/20 08:48 Pulse 75 07/26/20 08:48 Resp 18 07/26/20 08:48 BP 127/62 07/26/20 08:48 Pulse Ox 95 07/26/20 08:48 07/25/20 07/26/20 07/26/20 22:59 06:59 14:59 Intake Total 150 / 550 1720.667 / 2270.667 1586.667 / 1586.667 Output Total 500 / 500 700 / 1200 Balance -350 / 50 1020.667 / 5091.645 7369.667 / 1586.667 Physical Exam Narrative: EXAM NARRATIVE: General exam no apparent distress Cardiovascular regular rate and rhythm, with distant heart sounds Lungs diminished breath sounds but clear Abdomen is soft positive bowel sounds Extremities no cyanosis clubbing or edema, cap refill brisk. Incision site right hip clean and dry. Minimal hematoma. Urinary Catheter Management^: Radford: Cath Placed During This Visit: yes Reason for Continuing Indwelling Catheter: Accurate Measurement of Urinary Output in Critically Ill Patients Urinary Catheter Date of Insertion: 07/24/20 Urinary Catheter Time of Insertion: 10:18 Data : 07/26/20 12:25 07/26/20 02:40 A&P Assessment and plan (1) Closed right hip fracture: Postoperative day #1 Will need discharge to skilled care. Discharge planning as working on this. Status: Deleted (2) Anemia: This is been found to be chronic with a hemoglobin around 8.2 10 days ago. He received 2 units of packed red blood cells prior to surgery Hemoglobin on repeat today 7.8. Noted to be significantly iron deficient. Iron infusion ordered. Close follow-up of hemoglobin tomorrow. Status: Acute (3) Afib: Rate is controlled currently Digoxin level is now normal Continue metoprolol and digoxin Initiate Eliquis for anticoagulation, lower dose considering his severe anemia. No evidence of active bleeding. Status: Acute Additional A&P Information History of CHF, with history of biventricular AICD. Currently compensated Peripheral vascular disease with history of subclavian stenosis for which he will be getting surgical evaluation soon. Note that his blood pressures vary greatly side to side. GERD BPH Full code SCDs for DVT prophylaxis. Initiate anticoagulation with Eliquis, lower dose Attestations Medical Necessity Statement*: Needs continued hospitalization for close monitoring following hip fracture repair as well as anemia. Coding Level of Care Code Acute Customer Orders Clerk for Chg Fwd Diagnoses Closed right hip fracture S72.001A Anemia D64.9 Afib I48.91
[2020-07-26] MEDS: morphine 4 mg/mL SDV 1 mL 2 MG IVP (12:15)
--- NOTE | 2020-07-26 12:23 | PM.PN ---
Subjective Subjective: Interval history: Patient in better spirits, less right hip pain Vitals/I&O/Wt Last Vital Signs Temp 98.2 F 07/26/20 11:39 Pulse 75 07/26/20 11:39 Resp 18 07/26/20 11:39 BP 118/72 07/26/20 11:39 Pulse Ox 96 07/26/20 11:39 07/25/20 07/26/20 07/26/20 22:59 06:59 14:59 Intake Total 150 / 550 1720.667 / 2270.667 1636.667 / 1636.667 Output Total 500 / 500 700 / 1200 Balance -350 / 50 1020.667 / 0499.392 0883.667 / 1636.667 Physical Exam Narrative: EXAM NARRATIVE: Right hip dressings clean and dry. Expected swelling right thigh. Urinary Catheter Management^: Radford: Cath Placed During This Visit: yes Reason for Continuing Indwelling Catheter: Accurate Measurement of Urinary Output in Critically Ill Patients Urinary Catheter Date of Insertion: 07/24/20 Urinary Catheter Time of Insertion: 10:18 Data : 07/26/20 02:40 07/26/20 02:40 A&P Assessment and plan (1) Intertrochanteric fracture of right hip: Status: Acute (2) Postoperative state: Patient may weight-bear as tolerated on her right hip. Plans ultimate [facility]. His trevin may be discontinued there. Typically I will obtain x-rays at 4 weeks postoperatively. We could obtain those films in [place] and have them available for review. I told the family I could certainly see them back here if they prefer Status: Acute Attestations Medical Necessity Statement*: As per medicine Coding Level of Care Code Acute Pressroom Foreman for Cam Goldstein Diagnoses Intertrochanteric fracture of right hip S72.141A Postoperative state Z98.890
[2020-07-26 12:46] LABS: Hematocrit 25.8 % (42.0-52.0); Hemoglobin 7.8 g/dL (11.7-16.6)
[2020-07-26] MEDS: atorvastatin 40 mg Tablet PO (21:48)
[2020-07-26] MEDS: aspirin 81 mg Chew Tablet PO (21:48)
[2020-07-26] MEDS: gabapentin 300 mg Capsule PO (21:48)
[2020-07-26] MEDS: apixaban 5 mg Tablet 2.5 MG PO (21:49)
[2020-07-27] VITALS (11 sets, daily range): BP systolic 114–149; BP diastolic 54–70; PULSE 67–73; RESP 16–18; TEMP 36.7–37.1; O2SAT 92–98
[2020-07-27] MEDS: morphine 4 mg/mL SDV 1 mL 2 MG IVP
[2020-07-27 02:38] LABS: Basophils # 0.1 10^3/uL (0.0-0.1); Basophils % 0.7 %; Eosinophils # 0.2 10^3/uL (0.0-0.8); Eosinophils % 2.8 %; Hematocrit 23.4 % (42.0-52.0); Hemoglobin 7.1 g/dL (11.7-16.6); Lymphocytes # 1.5 10^3/uL (0.8-4.8); Lymphocytes % 21.5 %; Mean Corpuscular HGB Conc 30.3 g/dL (30.0-36.0); Mean Corpuscular Hemoglobin 24.7 pg (28.0-34.0); Mean Corpuscular Volume 81.5 fL (80-94); Mean Platelet Volume 11.6 fL (7.4-10.4); Monocytes # 0.8 10^3/uL (0.2-0.9); Monocytes % 11.7 %; Neutrophils # 4.22 10^3/uL (1.8-7.7); Neutrophils % 62.9 %; Nucleated Red Blood Cells % 0 %; Platelet Count 117 10^3/cmm (130-400); Red Blood Count 2.87 10^6/uL (4.1-5.3); White Blood Count 6.7 10^3/uL (4.0-10.0)
[2020-07-27 02:57] LABS: Anion Gap 13.9 (5-19); Blood Urea Nitrogen 19 mg/dL (8-23); Carbon Dioxide 21 mmol/L (22-29); Chloride 110 mmol/L (98-107); Glucose 88 mg/dL (65-115); Osmolality Calculated 294 mOsm/kg (285-295); Potassium 3.9 mmol/L (3.5-5.1); Sodium 141 mmol/L (136-145)
[2020-07-27 05:05] LABS: Hemoglobin 7.1 g/dL (11.7-16.6)
[2020-07-27] MEDS: chlorhexidine gluconate 0.12% Btl 473 mL 30 ML MUCOUS MEM ×4 (08:26→20:35)
[2020-07-27] MEDS: HYDROcodone-acetaminophen 5-325 mg Tablet 1 TAB PO ×3 (08:27→18:36)
[2020-07-27] MEDS: sennosides-docusate Tablet 2 TAB PO ×2 (08:28→18:14)
[2020-07-27] MEDS: pantoprazole DR 40 mg Tablet PO ×2 (08:28→18:14)
[2020-07-27] MEDS: digoxin 125 mcg Tablet PO (08:28)
[2020-07-27] MEDS: gabapentin 100 mg Capsule PO (08:29)
[2020-07-27] MEDS: nicotine 14 mg Patch 1 PATCH TRANSDERMA (08:29)
[2020-07-27] MEDS: FUROsemide 20 mg Tablet PO (08:29)
[2020-07-27] MEDS: metoprolol tartrate 25 mg Tablet PO ×2 (08:43→20:35)
[2020-07-27] MEDS: sodium chloride 0.9% (100 ml) 100 ML 10 ML (10:44)
--- NOTE | 2020-07-27 12:16 | P.PN_ITS ---
Subjective Subjective: Interval history: Jed reports he is doing better. The leg is hurting less. Hemoglobin was low this morning and public welfare worker arrange for transfusion. He has not had any stools to suggest any active bleeding. Medications: Reviewed: Yes Vitals/I&O/Wt Last Vital Signs Temp 98.7 F 07/27/20 12:09 Pulse 73 07/27/20 12:09 Resp 18 07/27/20 12:09 BP 114/60 07/27/20 12:09 Pulse Ox 98 07/27/20 12:09 07/26/20 07/27/20 07/27/20 22:59 06:59 14:59 Intake Total 480 / 2646.667 240 / 240 Output Total 240 / 240 240 / 480 Balance 240 / 2406.667 -240 / 2166.667 240 / 240 Physical Exam Narrative: EXAM NARRATIVE: General exam no apparent distress Cardiovascular regular rate and rhythm, with distant heart sounds Lungs diminished breath sounds but clear Abdomen is soft positive bowel sounds Extremities no cyanosis clubbing or edema, cap refill brisk. Incision site right hip clean and dry. Minimal hematoma. Urinary Catheter Management^: Radford: Cath Placed During This Visit: yes, but has since been removed by the nurse Reason for Continuing Indwelling Catheter: Decision to DC Catheter Urinary Catheter Date of Insertion: 07/24/20 Urinary Catheter Time of Insertion: 10:18 Date Urinary Catheter Removed: 07/26/20 Time Urinary Catheter Discontinued: 15:55 Data : 07/27/20 05:01 07/27/20 02:02 A&P Assessment and plan (1) Closed right hip fracture: Postoperative day #2 Will need discharge to skilled care. Discharge planning as working on this. Status: Deleted (2) Anemia: This is been found to be chronic with a hemoglobin around 8.2 10 days prior to admission He received 2 units of packed red blood cells prior to surgery Hemoglobin today 7.1. Transfusing 1 unit packed red blood cells CBC only tomorrow morning Eliquis discontinued currently secondary to persistent anemia Status: Acute (3) Afib: Rate is controlled currently Digoxin level is now normal Continue metoprolol and digoxin Eliquis discontinued secondary to persistent anemia. No evidence for ongoing bleeding currently. Status: Acute Additional A&P Information History of CHF, with history of biventricular AICD. Currently compensated Peripheral vascular disease with history of subclavian stenosis for which he will be getting surgical evaluation soon. Note that his blood pressures vary greatly side to side. GERD BPH Full code SCDs for DVT prophylaxis. Initiate anticoagulation with Eliquis, lower dose Attestations Medical Necessity Statement*: Needs continued hospitalization secondary to close monitoring needed following hip fracture as well as persistent anemia requiring transfusion. Coding Level of Care Code Acute Loop Sewer for Chg Fwd Diagnoses Closed right hip fracture S72.001A Anemia D64.9 Afib I48.91
--- NOTE | 2020-07-27 13:19 | PM.PN ---
Subjective Subjective: Interval history: Doing well. Pain controlled. Planned dc to SNF in [place] in am Vitals/I&O/Wt Last Vital Signs Temp 98.7 F 07/27/20 12:09 Pulse 73 07/27/20 12:09 Resp 18 07/27/20 12:09 BP 114/60 07/27/20 12:09 Pulse Ox 98 07/27/20 12:09 07/26/20 07/27/20 07/27/20 22:59 06:59 14:59 Intake Total 480 / 2646.667 240 / 240 Output Total 240 / 240 240 / 480 Balance 240 / 2406.667 -240 / 2166.667 240 / 240 Physical Exam Narrative: EXAM NARRATIVE: Dressing clean and dry. Expected swelling right thigh Urinary Catheter Management^: Radford: Cath Placed During This Visit: yes, but has since been removed by the nurse Reason for Continuing Indwelling Catheter: Decision to DC Catheter Urinary Catheter Date of Insertion: 07/24/20 Urinary Catheter Time of Insertion: 10:18 Date Urinary Catheter Removed: 07/26/20 Time Urinary Catheter Discontinued: 15:55 Data : 07/27/20 05:01 07/27/20 02:02 A&P Additional A&P Information Ready for discharge per ortho. Will try and have xrays sent to me in a month for review. May WBAT. Attestations Medical Necessity Statement*: As per medicine Coding Level of Care Code Acute Wire Wrapping Machine Operator for Cam Goldstein
[2020-07-27 13:20] LABS: Add Urine Microscopic? YES; Bilirubin Urine Neg (Negative); Blood Urine Neg (Negative); Glucose Urine UA Norm (Normal); Ketones Urine Negative (Negative); Leukocyte Esterase Urine Trace (Negative); Nitrate Urine Negative (Negative); Protein Urine Neg (Negative); Urine Appearance Clear (CLEAR); Urine Color Yellow (Yellow); Urobilinogen Urine Norm (Negative); pH Urine 5 (5-7)
[2020-07-27] MEDS: magnesium hydroxide 30 mL UDC PO (13:27)
[2020-07-27] MEDS: polyethylene glycol 3350 Pkt 17 gm PO (13:27)
[2020-07-27 13:35] LABS: Add Urine Culture? No; Bacteria Urine TRACE /hpf; Mucus Urine 2+ /hpf; Squamous Epithelial Cell Urine 0-4 /hpf (0-5); WBC Urine 0-4 /hpf (0-5)
[2020-07-27] MEDS: gabapentin 300 mg Capsule PO (20:34)
[2020-07-27] MEDS: aspirin 81 mg Chew Tablet PO (20:35)
[2020-07-27] MEDS: atorvastatin 40 mg Tablet PO (20:35)
[2020-07-28] MEDS: HYDROcodone-acetaminophen 5-325 mg Tablet 1 TAB PO ×2 (00:01→08:32)
[2020-07-28 06:54] VITALS: BP 133/70; PULSE 76; RESP 16; TEMP 36.9; O2SAT 96
[2020-07-28 06:55] LABS: Basophils # 0.1 10^3/uL (0.0-0.1); Basophils % 1.1 %; Eosinophils # 0.4 10^3/uL (0.0-0.8); Hematocrit 29.4 % (42.0-52.0); Lymphocytes # 1.7 10^3/uL (0.8-4.8); Lymphocytes % 27.7 %; Mean Corpuscular HGB Conc 30.6 g/dL (30.0-36.0); Mean Corpuscular Hemoglobin 24.5 pg (28.0-34.0); Mean Corpuscular Volume 79.9 fL (80-94); Mean Platelet Volume 11.8 fL (7.4-10.4); Monocytes # 0.8 10^3/uL (0.2-0.9); Monocytes % 12.7 %; Neutrophils # 3.21 10^3/uL (1.8-7.7); Neutrophils % 51.9 %; Nucleated Red Blood Cells % 0 %; Platelet Count 142 10^3/cmm (130-400); Red Blood Count 3.68 10^6/uL (4.1-5.3); White Blood Count 6.2 10^3/uL (4.0-10.0)
[2020-07-28] MEDS: chlorhexidine gluconate 0.12% Btl 473 mL 30 ML MUCOUS MEM (08:35)
[2020-07-28] MEDS: pantoprazole DR 40 mg Tablet PO (09:09)
[2020-07-28] MEDS: gabapentin 100 mg Capsule PO (09:09)
[2020-07-28] MEDS: FUROsemide 20 mg Tablet PO (09:09)
[2020-07-28] MEDS: sennosides-docusate Tablet 2 TAB PO (09:09)
[2020-07-28] MEDS: nicotine 14 mg Patch 1 PATCH TRANSDERMA (09:09)
[2020-07-28] MEDS: metoprolol tartrate 25 mg Tablet PO (09:12)
[2020-07-28 09:55] LABS: SARS Covid-2 Antigen Negative (Negative)
--- NOTE | 2020-07-28 11:16 | P.DS_ITS ---
Discharge Providers Date of Admission: 07/24/20 03:59 Date of Discharge: July 28, 2020 Attending Provider at Admission: Eugene Scales MD Attending Provider at Discharge: Simone Roman Diagnoses at Discharge Discharge Diagnosis (1) Closed right hip fracture: Status: Deleted (2) Anemia: Status: Acute (3) Afib: Status: Acute Reason for Visit Reason for Visit: FALL Hospital Course Hospital Course Patient successfully underwent open reduction and internal fixation of the hip fracture by Dr. Dee. Postoperatively is doing very well and is eager to be discharged. He is cleared by the orthopedic surgeon. The pain is well controlled. [facility] is being [facility]. Denies any active complaints today. Denies dizziness or lightheadedness, weakness, uncontrolled pain, nausea or vomiting, chest pain, shortness of breath. He received total of 3 units of PRBCs due to anemia. His anemia is currently stable. He is home medications including Eliquis that he takes for A. fib are resumed. He has history of CHF and COPD. No evidence of exacerbation at this time. He will continue his home medications. Physical Exam Narrative: EXAM NARRATIVE: The patient is awake alert oriented. No acute distress. Mood and affect are appropriate. Responses are adequate. Skin is warm and dry. Moist mucous membranes. Neck supple. No JVD Lungs clear bilaterally. No respiratory distress Heart S1, S2, regular Abdomen soft, nontender, bowel sounds are present Extremities no calf tenderness or peripheral cyanosis. Normal capillary refill. Urinary Catheter Management^: [place]: Cath Placed During This Visit: yes, but has since been removed by the nurse Reason for Continuing Indwelling Catheter: Decision to DC Catheter Urinary Catheter Date of Insertion: 07/24/20 Urinary Catheter Time of Insertion: 10:18 Date Urinary Catheter Removed: 07/26/20 Time Urinary Catheter Discontinued: 15:55 Discharge Data Data Completed and Pending: Completed Studies During Hospitalization Category Date Time Status XR chest 1V scott ble [id number] Stat Exams 07/23/20 23:39 Completed XR hip RT 2-3V wo /w pel* [id number] Rout ine Exams 07/25/20 13:35 Completed XR hip RT 2-3V wo /w pel* [id number] Stat Exams 07/23/20 23:05 Completed XR pelvis 1-2V* 7 2170 Urgent Exams 07/23/20 Completed Pending at discharge Category Date Time Status Immunochemical Fe vitaly OCB Routine Lab 07/24/20 13:58 Uncollected Leukocyte Reduced RBC Routine Lab 07/24/20 10:04 Results Type and Screen R outine Lab 07/24/20 10:04 Results Labs from last 24 hours 07/28/20 07/28/20 07/27/20 09:05 06:24 13:09 WBC 6.2 RBC 3.68 L Hgb 9.0 L Hct 29.4 L MCV 79.9 L MCH 24.5 L MCHC 30.6 RDW 19.0 H Plt Count 142 MPV 11.8 H Neut % (Auto) 51.9 Lymph % (Auto) 27.7 [place] % (Auto) 12.7 Eos % (Auto) 6.0 Baso % (Auto) 1.1 Neut # (Auto) 3.21 Lymph # (Auto) 1.7 [place] # (Auto) 0.8 Eos # (Auto) 0.4 Baso # (Auto) 0.1 Nucleated RBC % (a uto) 0 Nucleated RBCs # 0.0 Urine Color Yellow Urine Appearance Clear Urine pH 5 Ur Specific Gravit y 1.020 Urine Protein Neg Urine Glucose (UA) Norm Urine Ketones Negative Urine Blood Neg Urine Nitrate Negative Urine Bilirubin Neg Urine Urobilinogen Norm Ur Leukocyte Maribel ase Trace H Urine RBC 5-10 H Urine WBC 0-4 H Ur Squamous Epith Cells 0-4 H Amorphous Sediment Not Reportable Urine Bacteria Trace Hyaline Casts 10-15 H Urine Mucus 2+ SARS-CoV-2 Ag (Rap id) Negative Blood Type Rho(D) Type Antibody Screen Crossmatch 07/27/20 07/24/20 07:55 10:04 WBC RBC Hgb Hct MCV MCH MCHC RDW Plt Count MPV Neut % (Auto) Lymph % (Auto) [place] % (Auto) Eos % (Auto) Baso % (Auto) Neut # (Auto) Lymph # (Auto) [place] # (Auto) Eos # (Auto) Baso # (Auto) Nucleated RBC % (a uto) Nucleated RBCs # Urine Color Urine Appearance Urine pH Ur Specific Gravit y Urine Protein Urine Glucose (UA) Urine Ketones Urine Blood Urine Nitrate Urine Bilirubin Urine Urobilinogen Ur Leukocyte Maribel ase Urine RBC Urine WBC Ur Squamous Epith Cells Amorphous Sediment Urine Bacteria Hyaline Casts Urine Mucus SARS-CoV-2 Ag (Rap id) Blood Type O Positive Rho(D) Type Positive / 4+ Antibody Screen Negative Crossmatch See Detail See Detail Vitals: Last Vital Signs Temp 98.4 F 07/28/20 06:54 Pulse 76 07/28/20 06:54 Resp 16 07/28/20 06:54 BP 133/70 07/28/20 06:54 Pulse Ox 96 07/28/20 06:54 Discharge Plan Discharge Patient Disposition: Xfer SNF Condition: Stable Prescriptions: New oxycodone 5 mg tablet 5 mg PO Q4H PRN (Reason: pain) Qty: 40 RF: 0 Continued atorvastatin 40 mg tablet 40 mg PO DAILY RF: 0 omeprazole 40 mg capsule,delayed release(DR/EC) 40 mg PO DAILY RF: 0 Eliquis 5 mg tablet 5 mg PO BID RF: 0 gabapentin 100 mg capsule See Rx Instructions .ROUTE .COMPLEX RF: 0 metoprolol tartrate 50 mg tablet 25 mg PO BID RF: 0 furosemide 20 mg tablet 20 mg PO DAILY RF: 0 potassium chloride 20 mEq tablet,ER particles/crystals 20 meq PO DAILY RF: 0 tamsulosin 0.4 mg capsule 0.4 mg PO DAILY RF: 0 digoxin 125 mcg (0.125 mg) tablet 125 mcg PO AC RF: 0 sildenafil 20 mg tablet 20 mg PO DAILY PRN (Reason: Erectile Dysfunction) RF: 0 docusate sodium [Colace] 100 mg Capsule 100 mg PO BID PRN (Reason: Constipation (1ST)) RF: 0 Vitamin D3 5,000 mg 5,000 mg PO DAILY RF: 0 vitamin D55-dkblw acid 1,000 mg 1,000 mg PO DAILY RF: 0 calcium 500 mg 500 mg PO DAILY RF: 0 magnesium 250 mg 250 mg PO BID RF: 0 gabapentin 300 mg Capsule 300 - 600 mg PO BEDTIME RF: 0 aspirin 81 mg Tablet,Chewable 81 mg PO BEDTIME RF: 0 Discontinued hydrocodone-acetaminophen 10-325 mg tablet 1 tab PO TID PRN (Reason: Pain) RF: 0 oxycodone 5 mg tablet 5 mg PO TID PRN (Reason: Pain) RF: 0 Discharge Orders: Discharge Order (Routine); Ordered 07/28/20 Ordered By: Simone Roman Other Ambulatory Orders: Basic Metabolic Panel (Routine) Timeframe: 1 Week Facility: [facility] - Location: Lab - Main Lab Ordered By: Simone Roman Complete Blood Count w/Auto (Routine) Timeframe: 1 Week Location: Determined by Patient Ordered By: Simone Roman Referrals: [facility] [Other] Discharge Diet: Advance as tolerated Discharge Activity: Limit activity as instructed Patient Instructions: Oxycodone, Rapid Release (By mouth), Open Reduction and Internal Fixation of a Hip Fracture (DC) Activity Restrictions/Additional Instructions: May weight-bear as tolerated on right lower extremity [place] may be removed on 08/07/2020 Okay to shower or sponge bath incision once completely free of drainage May follow-up with local [place] orthopedic surgeon in 1 month. If pre ferred can obtain local x-rays and have them sent to my clinic for review and telemedicine visit Discharge Attestations Time Spent in Discharge Care*: less than 30 min Quality Metrics Clinical Quality Measures During this hospital stay, did patient experience: None Coding Level of Care Code Acute Chg FW DC note Diagnoses Closed right hip fracture S72.001A Anemia D64.9 Afib I48.91
--- NOTE | 2020-07-28 11:38 | PC.OT ---
OT attempted to see pt this A.M. Pt denies further need for OT services at this time as he is dressed, sitting in wheelchair and awaiting discharge. AYAAN Howard/Damion GUDINO/Scooter
[2020-07-28 12:51] VITALS: BP 133/70; PULSE 76; RESP 16; TEMP 36.9; O2SAT 96
== END 2020-07-28 11:15 | disposition skilled nursing facility (03) | DRG 481 ==
LOC: ER 23:23 → MEDSURG 07-24 08:33
PROVIDERS: Internal Medicine; Orthopaedic Surgery; Admitting Provider Internal Medicine; Emergency Provider Nurse Practitioner Family; Visit Provider Internal Medicine
PROC: 0QS606Z Reposition Right Upper Femur with Intramedullary Internal Fixation Device, Open Approach (ICD-10-PCS; CPT 27245; principal; 2020-07-25 12:00)
DX: S72.141A Displaced intertrochanteric fracture of right femur, initial encounter for closed fracture (principal); I50.22 Chronic systolic (congestive) heart failure; W08.XXXA Fall from other furniture, initial encounter; Y92.009 Unspecified place in unspecified non-institutional (private) residence as the place of occurrence of the external cause; D64.9 Anemia, unspecified; I48.91 Unspecified atrial fibrillation; K21.9 Gastro-esophageal reflux disease without esophagitis; N40.0 Benign prostatic hyperplasia without lower urinary tract symptoms; I25.10 Atherosclerotic heart disease of native coronary artery without angina pectoris; I73.9 Peripheral vascular disease, unspecified; F17.210 Nicotine dependence, cigarettes, uncomplicated; Z79.01 Long term (current) use of anticoagulants; Z79.891 Long term (current) use of opiate analgesic; Z95.810 Presence of automatic (implantable) cardiac defibrillator; Z95.1 Presence of aortocoronary bypass graft; Z95.820 Peripheral vascular angioplasty status with implants and grafts; Z86.73 Personal history of transient ischemic attack (TIA), and cerebral infarction without residual deficits
CPT/HCPCS: 36415; 36430; 51702; 71045; 72170; 73502; 76000; 80048; 80053; 80162; 81001; 82607; 82728; 82746; 83540; 83550; 83735; 85014; 85018; 85025; 85610; 86850; 86900; 86920; 87426; 93005; 96361; 96374; 96375; 97110; 97162; 97166; 97530; 97535; 99285; C1713; J0690; J1100; J1170; J1756; J1940; J2270; J2405; J2704; J3010; J3490; J7030; J7040; J7611; J7799; P9016